=== PATIENT | male | born 1970 | race Caucasian/White ===

== ENCOUNTER 2018-08-11 07:44 | Emergency (ER) | payer BC ==
[~2018-08-11] VITALS: Ht 177.8 cm; Wt 124.7 kg
[2018-08-11 07:44] VITALS: BP_SYST 111
[2018-08-11] MEDS ORDERED: DIPHENOXYLATE HCL/ATROP SULF 2.5 MG TAB PO ONE (08:45)
[2018-08-11] MEDS ORDERED: KETOROLAC TROMETHAMINE 60 MG/2 ML VIAL IM ONE (08:45)
[2018-08-11 10:03] VITALS: BP_SYST 125
== END 2018-08-11 10:03 | disposition home or self-care (01) ==
LOC: SED 07:44
DX: K52.9 Noninfective gastroenteritis and colitis, unspecified (principal); Z98.84 Bariatric surgery status
CPT/HCPCS: 74018; 96372; 99283; J1885

== ENCOUNTER 2018-08-15 14:08 | Inpatient (IN) | payer BC ==
[~2018-08-15] VITALS: Ht 180.3 cm; Wt 127.0 kg
[2018-08-15 14:36] VITALS: BP_SYST 105
[2018-08-15 15:44] LABS: BILIRUBIN,URINE 1+ (NEGATIVE); BLOOD, URINE 2+ (NEGATIVE); CLARITY/URINE CLEAR (CLEAR); COLOR,URINE YELLOW (YELLOW); GLUCOSE,URINE NEGATIVE (NEGATIVE); KETONES,URINE NEGATIVE (NEGATIVE); LEUKOCYTE ESTERASE ,URINE NEGATIVE (NEGATIVE); NITRITE, URINE NEGATIVE (NEGATIVE); PROTEIN URINE NEGATIVE (NEGATIVE)
[2018-08-15] MEDS ORDERED: NACL 0.9% 1,000 ML IV ONE ×2 (15:47→22:00)
[2018-08-15 15:54] LABS: BACTERIA,URINE FEW /HPF (None Seen); MUCUS,URINE 1+ /LPF (None Seen); RBC,URINE 0-3 /HPF (0-3); WBC,URINE 0-3 /HPF (0-3)
[2018-08-15] MEDS ORDERED: MORPHINE 4 MG/ML INJ. SYRINGE IVP ONE (16:00)
[2018-08-15] MEDS ORDERED: DIPHENHYDRAMINE INJ 50 MG/ML VIAL IVP ONE (16:00)
[2018-08-15 16:11] LABS: MONOCYTES # (AUTO) 0.5 K/uL (0.0-1.0)
[2018-08-15 16:15] LABS: BASOPHILS # (AUTO) 0.1 K/uL (0.0-0.2); BASOPHILS % (AUTO) 1.5 % (0.0-2.0); EOSINOPHILS % (AUTO) 0.5 % (0.0-4.0); HEMATOCRIT 44.9 % (36-54); HEMOGLOBIN 14.9 g/dL (14.0-18.0); LYMPHOCYTES # (AUTO) 1.9 K/uL (1.0-5.5); LYMPHOCYTES % (AUTO) 26.4 % (20.5-51.5); MEAN CORPUSCULAR HEMOGLOBIN 32 pg (27-31); MEAN CORPUSCULAR HGB CONC 33 % (32-36); MEAN CORPUSCULAR VOLUME 96 fL (79.0-98.0); MONOCYTES % (AUTO) 6.9 % (1.7-9.3); NEUTROPHILS # (AUTO) 4.9 K/uL (1.8-7.7); NEUTROPHILS % (AUTO) 64.7 % (40.0-70.0); PLATELET COUNT (AUTO) 206 K/uL (130-430); RED BLOOD CELL COUNT(AUTO) 4.66 MIL/uL (4.2-6.2); RED CELL DISTRIBUTION WIDTH 12.3 % (9.0-15.0); WHITE BLOOD COUNT (AUTO) 7.4 K/uL (4.8-10.8)
[2018-08-15 16:17] LABS: CALCIUM 9.1 mg/dL (8.4-11.0); CREATININE 1.09 mg/dL (0.55-1.30); POTASSIUM 4.2 mmol/L (3.5-5.1)
[2018-08-15 16:22] LABS: ALBUMIN 3.8 g/dL (3.4-4.8); TOTAL BILIRUBIN 0.5 mg/dL (0.0-1.0)
[2018-08-15] MEDS ORDERED: ONDANSETRON HCL 4 MG/2 ML VIAL IVP ONE (17:45)
[2018-08-15] MEDS ORDERED: PIPERACILLIN/TAZO 3.375 GM in NS 50 ML IV ONE (19:30)
[2018-08-15] MEDS ORDERED: NACL 0.9% 1,000 ML IV SCH (19:45)
[2018-08-15] MEDS ORDERED: DIATR MEGLU/DIATRIZ SOD 30 ML SOLUTION PO ONE (19:47)
[2018-08-15] MEDS ORDERED: PIPERACILLIN/TAZOBACTAM 3.375 GM/VIAL (ZOSYN) IV ONE ×2 (19:50→22:36)
[2018-08-15 20:11] VITALS: BP_SYST 107
[2018-08-15] MEDS ORDERED: HYDR-4272 PO (20:24)
[2018-08-15] MEDS ORDERED: ALBUTEROL SULFATE 0.083% 2.5 MG/3 ML VIAL.NEB INH PRN (22:00)
[2018-08-15] MEDS ORDERED: ACETAMINOPHEN 325 MG TABLET PO PRN (22:00)
[2018-08-15] MEDS ORDERED: IOHEXOL 100 ML IV ONE (22:23)
[2018-08-15 23:20] VITALS: BP_SYST 107
[2018-08-16] MEDS: NACL 0.9% 1,000 ML IV SCH ×4 (00:05→17:48)
[2018-08-16] MEDS: PIPERACILLIN/TAZO 3.375/DEX-IS 50 ML IV SCH ×6 (00:06→23:06)
[2018-08-16 00:57] VITALS: BP_SYST 96
[2018-08-16 05:59] LABS: BASOPHILS # (AUTO) 0.1 K/uL (0.0-0.2); BASOPHILS % (AUTO) 1.5 % (0.0-2.0); EOSINOPHILS # (AUTO) 0.1 K/uL (0.0-0.4); EOSINOPHILS % (AUTO) 1.4 % (0.0-4.0); HEMATOCRIT 40.3 % (36-54); HEMOGLOBIN 12.9 g/dL (14.0-18.0); LYMPHOCYTES % (AUTO) 28.5 % (20.5-51.5); MEAN CORPUSCULAR HEMOGLOBIN 31 pg (27-31); MEAN CORPUSCULAR HGB CONC 32 % (32-36); MEAN CORPUSCULAR VOLUME 97 fL (79.0-98.0); MONOCYTES # (AUTO) 0.6 K/uL (0.0-1.0); MONOCYTES % (AUTO) 8.9 % (1.7-9.3); NEUTROPHILS # (AUTO) 4.1 K/uL (1.8-7.7); NEUTROPHILS % (AUTO) 59.7 % (40.0-70.0); PLATELET COUNT (AUTO) 174 K/uL (130-430); RED BLOOD CELL COUNT(AUTO) 4.16 MIL/uL (4.2-6.2); RED CELL DISTRIBUTION WIDTH 12.4 % (9.0-15.0); WHITE BLOOD COUNT (AUTO) 6.9 K/uL (4.8-10.8)
[2018-08-16 06:53] LABS: ALBUMIN 3.1 g/dL (3.4-4.8); CALCIUM 8.1 mg/dL (8.4-11.0); CREATININE 1.06 mg/dL (0.55-1.30); POTASSIUM 3.8 mmol/L (3.5-5.1); TOTAL BILIRUBIN 0.6 mg/dL (0.0-1.0)
[2018-08-16 08:27] VITALS: BP_SYST 100
[2018-08-16 09:15] LABS: INR 1.1 (0.80-1.20); PROTHROMBIN TIME 11.4 SECS (9.5-12.5)
[2018-08-16] MEDS ORDERED: fentaNYL CITRATE/PF 100 MCG/2 ML AMP IVP PRN (10:15)
[2018-08-16] MEDS ORDERED: KETOROLAC TROMETHAMINE 30 MG VIAL IVP PRN (10:15)
[2018-08-16] MEDS ORDERED: ONDANSETRON HCL 4 MG/2 ML VIAL IVP PRN ×2 (10:15→11:00)
[2018-08-16] MEDS ORDERED: ACETAMINOPHEN 325 MG TABLET PO PRN (11:00)
[2018-08-16] MEDS: fentaNYL CITRATE/PF 100 MCG/2 ML AMP IVP PRN ×2 (11:26→11:40)
[2018-08-16] MEDS ORDERED: HYDROmorphone 1 MG INJ. 1 MG/ML AMPUL ONE (11:38)
[2018-08-16] MEDS ORDERED: ONDANSETRON HCL 4 MG/2 ML VIAL ONE (11:38)
[2018-08-16] MEDS ORDERED: fentaNYL CITRATE/PF 100 MCG/2 ML AMP ONE (11:47)
[2018-08-16 12:30] VITALS: BP_SYST 117
[2018-08-16] MEDS: CEFAZOLIN 2 GM IVPB PREMIX 50 ML IV SCH ×2 (12:53→20:41)
[2018-08-16] MEDS: HYDROmorphone 1 MG INJ. 1 MG/ML AMPUL IVP PRN ×3 (12:55→21:25)
[2018-08-16 16:07] VITALS: BP_SYST 114
[2018-08-16 20:00] VITALS: BP_SYST 121
[2018-08-17] VITALS: BP_SYST 101
[2018-08-17] MEDS: HYDROmorphone 1 MG INJ. 1 MG/ML AMPUL IVP PRN ×7 (01:52→21:07)
[2018-08-17] MEDS: NACL 0.9% 1,000 ML IV SCH ×3 (03:38→23:01)
[2018-08-17] MEDS: PIPERACILLIN/TAZO 3.375/DEX-IS 50 ML IV SCH ×4 (05:02→23:00)
[2018-08-17 06:42] LABS: CALCIUM 8.4 mg/dL (8.4-11.0); CREATININE 1.09 mg/dL (0.55-1.30); POTASSIUM 3.7 mmol/L (3.5-5.1); TOTAL BILIRUBIN 0.6 mg/dL (0.0-1.0)
[2018-08-17 06:48] LABS: MONOCYTES # (AUTO) 0.7 K/uL (0.0-1.0); RED BLOOD CELL COUNT(AUTO) 4.27 MIL/uL (4.2-6.2); RED CELL DISTRIBUTION WIDTH 12.4 % (9.0-15.0); WHITE BLOOD COUNT (AUTO) 7.4 K/uL (4.8-10.8)
[2018-08-17 06:56] LABS: BASOPHILS # (AUTO) 0.1 K/uL (0.0-0.2); BASOPHILS % (AUTO) 0.7 % (0.0-2.0); EOSINOPHILS % (AUTO) 0.6 % (0.0-4.0); HEMATOCRIT 41.2 % (36-54); LYMPHOCYTES # (AUTO) 1.8 K/uL (1.0-5.5); LYMPHOCYTES % (AUTO) 24.1 % (20.5-51.5); MEAN CORPUSCULAR HEMOGLOBIN 31 pg (27-31); MEAN CORPUSCULAR HGB CONC 32 % (32-36); MEAN CORPUSCULAR VOLUME 97 fL (79.0-98.0); NEUTROPHILS # (AUTO) 4.8 K/uL (1.8-7.7); NEUTROPHILS % (AUTO) 65.6 % (40.0-70.0); PLATELET COUNT (AUTO) 193 K/uL (130-430)
[2018-08-17 08:00] VITALS: BP_SYST 101
[2018-08-17] MEDS: PHENAZOPYRIDINE HCL 100 MG TABLET PO SCH ×3 (08:53→17:56)
[2018-08-17] MEDS: PANTOPRAZOLE SODIUM 40 MG/VIAL (PROTONIX) IVP SCH (08:53)
[2018-08-17] MEDS ORDERED: BUPIVACAINE /PF 0.25% 30 ML VIAL INJ ONE (09:25)
[2018-08-17] MEDS ORDERED: MIDAZOLAM HCL 5 MG/5 ML VIAL IVP ONE (09:25)
[2018-08-17] MEDS ORDERED: fentaNYL CITRATE 250 MCG/5 ML AMP IV ONE (09:25)
[2018-08-17] MEDS ORDERED: NEOSTIGMINE METHYLSULFATE 1 MG/ML, 10 ML VIAL IVP ONE (09:25)
[2018-08-17] MEDS ORDERED: GLYCOPYRROLATE 0.2 MG/ML VIAL IJ ONE (09:25)
[2018-08-17] MEDS ORDERED: SEVOFLURANE 15 MIN GAS INH ONE (09:25)
[2018-08-17] MEDS ORDERED: PROPOFOL 200MG/ 20ML VIAL (DIPRIVAN) IV ONE (09:25)
[2018-08-17] MEDS ORDERED: LR 1,000 ML IV.SOLN IV ONE (09:25)
[2018-08-17 11:24] VITALS: BP_SYST 99
[2018-08-17 15:18] VITALS: BP_SYST 102
[2018-08-17] MEDS ORDERED: MINERAL OIL 30 ML UDC PO ONE (17:00)
[2018-08-17 19:45] VITALS: BP_SYST 104
[2018-08-17 23:59] VITALS: BP_SYST 106
[2018-08-18] MEDS: HYDROmorphone 1 MG INJ. 1 MG/ML AMPUL IVP PRN ×5 (02:57→21:19)
[2018-08-18] MEDS: PIPERACILLIN/TAZO 3.375/DEX-IS 50 ML IV SCH ×3 (05:16→17:36)
[2018-08-18 08:00] VITALS: BP_SYST 118
[2018-08-18] MEDS: PANTOPRAZOLE SODIUM 40 MG/VIAL (PROTONIX) IVP SCH (09:01)
[2018-08-18] MEDS: MINERAL OIL 30 ML UDC PO SCH (09:01)
[2018-08-18] MEDS: PHENAZOPYRIDINE HCL 100 MG TABLET PO SCH ×3 (09:01→17:36)
[2018-08-18] MEDS: NACL 0.9% 1,000 ML IV SCH ×2 (09:02→20:23)
[2018-08-18 11:25] VITALS: BP_SYST 130
[2018-08-18] MEDS: MORPHINE 2 MG/ML INJ. SYRINGE IVP PRN (12:02)
[2018-08-18] MEDS ORDERED: DIATR MEGLU/DIATRIZ SOD 30 ML SOLUTION PO ONE (12:30)
[2018-08-18] MEDS ORDERED: IOHEXOL 100 ML IV ONE (14:10)
[2018-08-18 15:04] VITALS: BP_SYST 115
[2018-08-18 20:00] VITALS: BP_SYST 128
[2018-08-18 23:39] VITALS: BP_SYST 107
[2018-08-19] MEDS: PIPERACILLIN/TAZO 3.375/DEX-IS 50 ML IV SCH ×2 (00:23→05:44)
[2018-08-19] MEDS: HYDROmorphone 1 MG INJ. 1 MG/ML AMPUL IVP PRN ×6 (00:24→21:59)
[2018-08-19] MEDS: NACL 0.9% 1,000 ML IV SCH (05:44)
[2018-08-19 07:27] LABS: BASOPHILS # (AUTO) 0.1 K/uL (0.0-0.2); BASOPHILS % (AUTO) 1.2 % (0.0-2.0); EOSINOPHILS # (AUTO) 0.1 K/uL (0.0-0.4); EOSINOPHILS % (AUTO) 1.4 % (0.0-4.0); HEMATOCRIT 44.5 % (36-54); HEMOGLOBIN 14.3 g/dL (14.0-18.0); LYMPHOCYTES # (AUTO) 1.7 K/uL (1.0-5.5); LYMPHOCYTES % (AUTO) 17.8 % (20.5-51.5); MEAN CORPUSCULAR HEMOGLOBIN 31 pg (27-31); MEAN CORPUSCULAR HGB CONC 32 % (32-36); MEAN CORPUSCULAR VOLUME 97 fL (79.0-98.0); MONOCYTES # (AUTO) 0.8 K/uL (0.0-1.0); MONOCYTES % (AUTO) 7.8 % (1.7-9.3); NEUTROPHILS # (AUTO) 6.9 K/uL (1.8-7.7); NEUTROPHILS % (AUTO) 71.8 % (40.0-70.0); PLATELET COUNT (AUTO) 207 K/uL (130-430); RED BLOOD CELL COUNT(AUTO) 4.61 MIL/uL (4.2-6.2); RED CELL DISTRIBUTION WIDTH 12.3 % (9.0-15.0); WHITE BLOOD COUNT (AUTO) 9.6 K/uL (4.8-10.8)
[2018-08-19 07:44] LABS: CREATININE 1.01 mg/dL (0.55-1.30)
[2018-08-19 07:50] LABS: ALBUMIN 3.2 g/dL (3.4-4.8); TOTAL BILIRUBIN 1.3 mg/dL (0.0-1.0)
[2018-08-19] MEDS ORDERED: *PPN PER PHARMACY XX PRN (08:00)
[2018-08-19] MEDS ORDERED: DEXTROSE 50% JECT 50 ML DISP.SYRIN IVP PRN (08:00)
[2018-08-19] MEDS ORDERED: INSULIN REGULAR, HUMAN 100 UNITS/ML, 10 ML VIAL (novoLIN R) SUBCUT PRN (08:00)
[2018-08-19 08:12] VITALS: BP_SYST 110
[2018-08-19] MEDS: PHENAZOPYRIDINE HCL 100 MG TABLET PO SCH ×3 (08:46→17:48)
[2018-08-19] MEDS: PANTOPRAZOLE SODIUM 40 MG/VIAL (PROTONIX) IVP SCH (08:46)
[2018-08-19] MEDS: MINERAL OIL 30 ML UDC PO SCH (08:46)
[2018-08-19 08:58] LABS: PHOSPHORUS 3.2 mg/dL (2.7-4.5)
[2018-08-19 12:02] VITALS: BP_SYST 107
[2018-08-19] MEDS: metroNIDAZOLE 500 mg/NS 100 ML IV SCH ×2 (14:06→21:03)
[2018-08-19 16:02] VITALS: BP_SYST 112
[2018-08-19] MEDS: FAT EMULSIONS 250 ML IV SCH (17:50)
[2018-08-19] MEDS ORDERED: TPN PERIPHERAL 0.0001 ML, SODIUM CHLORIDE 40 MEQ, POTASSIUM CHLORIDE 20 MEQ, K PHOS 9 M... IV SCH ×9 (18:00)
[2018-08-19 20:00] VITALS: BP_SYST 136
[2018-08-19 23:54] VITALS: BP_SYST 127
[2018-08-20] MEDS: HYDROmorphone 1 MG INJ. 1 MG/ML AMPUL IVP PRN ×6 (02:44→22:24)
[2018-08-20] MEDS: metroNIDAZOLE 500 mg/NS 100 ML IV SCH ×3 (05:02→22:24)
[2018-08-20] MEDS: MINERAL OIL 30 ML UDC PO SCH (09:00)
[2018-08-20 09:02] LABS: CALCIUM 8.5 mg/dL (8.4-11.0); CREATININE 0.91 mg/dL (0.55-1.30); POTASSIUM 3.7 mmol/L (3.5-5.1)
[2018-08-20 09:06] LABS: ALBUMIN 2.8 g/dL (3.4-4.8); PHOSPHORUS 2.8 mg/dL (2.7-4.5)
[2018-08-20] MEDS: PANTOPRAZOLE SODIUM 40 MG/VIAL (PROTONIX) IVP SCH (09:25)
[2018-08-20] MEDS: PHENAZOPYRIDINE HCL 100 MG TABLET PO SCH ×3 (09:25→18:53)
[2018-08-20 09:26] VITALS: BP_SYST 100
[2018-08-20] MEDS ORDERED: SODIUM CHLORIDE IV SCH ×18 (10:30→18:00)
[2018-08-20] MEDS ORDERED: TPN PERIPHERAL IV SCH ×18 (10:30→18:00)
[2018-08-20] MEDS ORDERED: [UNRECOGNIZED DRUG - OTHER] IV SCH ×18 (10:30→18:00)
[2018-08-20] MEDS ORDERED: POTASSIUM CHLORIDE IV SCH ×18 (10:30→18:00)
[2018-08-20 11:47] VITALS: BP_SYST 147
[2018-08-20 17:00] VITALS: BP_SYST 132
[2018-08-20] MEDS: FAT EMULSIONS 250 ML IV SCH (17:44)
[2018-08-20] MEDS: MORPHINE 2 MG/ML INJ. SYRINGE IVP PRN (18:00)
[2018-08-20 19:20] VITALS: BP_SYST 102
[2018-08-21 00:18] VITALS: BP_SYST 109
[2018-08-21] MEDS: HYDROmorphone 1 MG INJ. 1 MG/ML AMPUL IVP PRN ×3 (01:27→07:34)
[2018-08-21] MEDS: metroNIDAZOLE 500 mg/NS 100 ML IV SCH ×3 (06:22→22:13)
[2018-08-21 06:47] LABS: ALBUMIN 2.7 g/dL (3.4-4.8); CALCIUM 8.8 mg/dL (8.4-11.0); CREATININE 0.91 mg/dL (0.55-1.30); PHOSPHORUS 3.4 mg/dL (2.7-4.5); POTASSIUM 3.8 mmol/L (3.5-5.1); TOTAL BILIRUBIN 1.3 mg/dL (0.0-1.0)
[2018-08-21] MEDS: ONDANSETRON HCL 4 MG/2 ML VIAL IVP PRN (07:37)
[2018-08-21] MEDS ORDERED: DIATR MEGLU/DIATRIZ SOD 30 ML SOLUTION PO ONE (07:56)
[2018-08-21 08:01] VITALS: BP_SYST 118
[2018-08-21] MEDS: PHENAZOPYRIDINE HCL 100 MG TABLET PO SCH ×3 (08:30→18:30)
[2018-08-21] MEDS: PANTOPRAZOLE SODIUM 40 MG/VIAL (PROTONIX) IVP SCH (08:49)
[2018-08-21] MEDS: MINERAL OIL 30 ML UDC PO SCH (08:49)
[2018-08-21] MEDS ORDERED: IOHEXOL 100 ML IV ONE (09:49)
[2018-08-21] MEDS: HYDROmorphone 2 MG/ML VIAL IVP PRN ×4 (10:17→21:52)
[2018-08-21] MEDS ORDERED: NACL 0.9% 1,000 ML IV SCH (10:30)
[2018-08-21 12:08] VITALS: BP_SYST 122
[2018-08-21] MEDS: FLUCONAZOLE 200 mg/ NS 100 ML IV SCH (13:13)
[2018-08-21] MEDS ORDERED: METOCLOPRAMIDE HCL 10 MG/2 ML VIAL IVP ONE (16:00)
[2018-08-21] MEDS ORDERED: BISACODYL 10 MG/SUPPOSITORY RC ONE (16:00)
[2018-08-21 16:15] VITALS: BP_SYST 110
[2018-08-21] MEDS: FAT EMULSIONS 250 ML IV SCH (17:49)
[2018-08-21] MEDS ORDERED: [UNRECOGNIZED DRUG - OTHER] IV SCH ×9 (18:00)
[2018-08-21] MEDS ORDERED: TPN PERIPHERAL IV SCH ×9 (18:00)
[2018-08-21] MEDS ORDERED: POTASSIUM CHLORIDE IV SCH ×9 (18:00)
[2018-08-21] MEDS ORDERED: SODIUM CHLORIDE IV SCH ×9 (18:00)
[2018-08-21] MEDS: METOCLOPRAMIDE HCL 10 MG/2 ML VIAL IVP SCH ×2 (18:00→23:08)
[2018-08-21 19:05] VITALS: BP_SYST 115
[2018-08-21] MEDS ORDERED: HYDROmorphone 2 MG/ML VIAL IVP SCH (19:45)
[2018-08-21] MEDS ORDERED: LORazepam 2 MG/ML VIAL IVP SCH (22:00)
[2018-08-21] MEDS: KETOROLAC TROMETHAMINE 30 MG VIAL IM PRN (23:07)
[2018-08-22] MEDS: HYDROmorphone 2 MG/ML VIAL IVP PRN ×5 (01:44→23:34)
[2018-08-22] MEDS: metroNIDAZOLE 500 mg/NS 100 ML IV SCH ×3 (06:17→22:01)
[2018-08-22] MEDS: METOCLOPRAMIDE HCL 10 MG/2 ML VIAL IVP SCH ×4 (06:18→23:33)
[2018-08-22 08:00] VITALS: BP_SYST 109
[2018-08-22] MEDS: PHENAZOPYRIDINE HCL 100 MG TABLET PO SCH ×3 (08:27→18:19)
[2018-08-22] MEDS: PANTOPRAZOLE SODIUM 40 MG/VIAL (PROTONIX) IVP SCH (08:27)
[2018-08-22] MEDS: MINERAL OIL 30 ML UDC PO SCH (08:28)
[2018-08-22 09:17] LABS: ALBUMIN 2.5 g/dL (3.4-4.8); CALCIUM 8.3 mg/dL (8.4-11.0); CREATININE 0.89 mg/dL (0.55-1.30); PHOSPHORUS 2.6 mg/dL (2.7-4.5); POTASSIUM 3.8 mmol/L (3.5-5.1); TOTAL BILIRUBIN 1.5 mg/dL (0.0-1.0)
[2018-08-22 12:15] VITALS: BP_SYST 116
[2018-08-22] MEDS: FLUCONAZOLE 200 mg/ NS 100 ML IV SCH (12:58)
[2018-08-22 16:10] VITALS: BP_SYST 111
[2018-08-22 17:50] VITALS: BP_SYST 109
[2018-08-22] MEDS ORDERED: TPN PERIPHERAL IV SCH ×10 (18:00)
[2018-08-22] MEDS ORDERED: [UNRECOGNIZED DRUG - OTHER] IV SCH ×10 (18:00)
[2018-08-22] MEDS ORDERED: SODIUM CHLORIDE IV SCH ×10 (18:00)
[2018-08-22] MEDS ORDERED: POTASSIUM CHLORIDE IV SCH ×10 (18:00)
[2018-08-22] MEDS: FAT EMULSIONS 250 ML IV SCH (18:22)
[2018-08-22 19:10] VITALS: BP_SYST 126
[2018-08-22] MEDS: KETOROLAC TROMETHAMINE 30 MG VIAL IM PRN (22:02)
[2018-08-23 00:10] VITALS: BP_SYST 123
[2018-08-23] MEDS: HYDROmorphone 2 MG/ML VIAL IVP PRN ×7 (03:38→20:44)
[2018-08-23] MEDS: metroNIDAZOLE 500 mg/NS 100 ML IV SCH ×3 (05:36→22:14)
[2018-08-23] MEDS: METOCLOPRAMIDE HCL 10 MG/2 ML VIAL IVP SCH ×4 (05:36→23:17)
[2018-08-23 07:10] LABS: BASOPHILS % (AUTO) 0.2 % (0.0-2.0); EOSINOPHILS # (AUTO) 0.1 K/uL (0.0-0.4); EOSINOPHILS % (AUTO) 1.2 % (0.0-4.0); HEMATOCRIT 37.3 % (36-54); HEMOGLOBIN 12.6 g/dL (14.0-18.0); LYMPHOCYTES # (AUTO) 1.3 K/uL (1.0-5.5); LYMPHOCYTES % (AUTO) 14.7 % (20.5-51.5); MEAN CORPUSCULAR HEMOGLOBIN 32 pg (27-31); MEAN CORPUSCULAR HGB CONC 34 % (32-36); MEAN CORPUSCULAR VOLUME 95 fL (79.0-98.0); MONOCYTES # (AUTO) 1.1 K/uL (0.0-1.0); MONOCYTES % (AUTO) 13.4 % (1.7-9.3); NEUTROPHILS # (AUTO) 6.1 K/uL (1.8-7.7); NEUTROPHILS % (AUTO) 70.5 % (40.0-70.0); PLATELET COUNT (AUTO) 212 K/uL (130-430); RED BLOOD CELL COUNT(AUTO) 3.92 MIL/uL (4.2-6.2); RED CELL DISTRIBUTION WIDTH 12.3 % (9.0-15.0); WHITE BLOOD COUNT (AUTO) 8.6 K/uL (4.8-10.8)
[2018-08-23 08:00] VITALS: BP_SYST 130
[2018-08-23 08:22] LABS: CALCIUM 8.1 mg/dL (8.4-11.0); CREATININE 0.91 mg/dL (0.55-1.30); POTASSIUM 3.9 mmol/L (3.5-5.1)
[2018-08-23 08:26] LABS: ALBUMIN 2.3 g/dL (3.4-4.8); PHOSPHORUS 2.8 mg/dL (2.7-4.5); TOTAL BILIRUBIN 1.2 mg/dL (0.0-1.0)
[2018-08-23] MEDS: PANTOPRAZOLE SODIUM 40 MG/VIAL (PROTONIX) IVP SCH (09:13)
[2018-08-23] MEDS: MINERAL OIL 30 ML UDC PO SCH (09:13)
[2018-08-23] MEDS: PHENAZOPYRIDINE HCL 100 MG TABLET PO SCH ×3 (09:13→18:23)
[2018-08-23] MEDS ORDERED: COMMUNICATION ORDER XX ONE (10:30)
[2018-08-23 12:00] VITALS: BP_SYST 125
[2018-08-23] MEDS: FLUCONAZOLE 200 mg/ NS 100 ML IV SCH (13:22)
[2018-08-23] MEDS: D5/0.45 NS 1,000 ML IV SCH (17:05)
[2018-08-23 17:42] VITALS: BP_SYST 136
[2018-08-23 20:16] VITALS: BP_SYST 140
[2018-08-23] MEDS: ONDANSETRON HCL 4 MG/2 ML VIAL IVP PRN (20:43)
[2018-08-23] MEDS: LORazepam 2 MG/ML VIAL IVP PRN (23:18)
[2018-08-24 00:16] VITALS: BP_SYST 118
[2018-08-24] MEDS: HYDROmorphone 2 MG/ML VIAL IVP PRN ×7 (03:02→21:25)
[2018-08-24] MEDS: D5/0.45 NS 1,000 ML IV SCH ×2 (03:02→16:59)
[2018-08-24] MEDS: METOCLOPRAMIDE HCL 10 MG/2 ML VIAL IVP SCH ×4 (06:08→23:38)
[2018-08-24] MEDS: metroNIDAZOLE 500 mg/NS 100 ML IV SCH (06:08)
[2018-08-24] MEDS: MINERAL OIL 30 ML UDC PO SCH (09:00)
[2018-08-24] MEDS: PHENAZOPYRIDINE HCL 100 MG TABLET PO SCH ×3 (09:43→18:30)
[2018-08-24] MEDS: PANTOPRAZOLE SODIUM 40 MG/VIAL (PROTONIX) IVP SCH (09:43)
[2018-08-24 09:55] VITALS: BP_SYST 120
[2018-08-24 13:02] VITALS: BP_SYST 134
[2018-08-24 18:05] VITALS: BP_SYST 127
[2018-08-24 20:59] VITALS: BP_SYST 132
[2018-08-24] MEDS: LORazepam 2 MG/ML VIAL IVP PRN (23:38)
[2018-08-25 00:53] VITALS: BP_SYST 117
[2018-08-25] MEDS: D5/0.45 NS 1,000 ML IV SCH ×2 (02:50→17:47)
[2018-08-25] MEDS: HYDROmorphone 2 MG/ML VIAL IVP PRN ×8 (02:51→22:11)
[2018-08-25] MEDS: METOCLOPRAMIDE HCL 10 MG/2 ML VIAL IVP SCH ×3 (06:05→17:45)
[2018-08-25 09:00] VITALS: BP_SYST 139
[2018-08-25] MEDS: PHENAZOPYRIDINE HCL 100 MG TABLET PO SCH ×3 (09:44→17:45)
[2018-08-25] MEDS: MINERAL OIL 30 ML UDC PO SCH (09:44)
[2018-08-25] MEDS: PANTOPRAZOLE SODIUM 40 MG/VIAL (PROTONIX) IVP SCH (09:45)
[2018-08-25] MEDS ORDERED: HYDROcodone/ACETAMIN 5-325 MG TAB (NORCO/ VICODIN) PO PRN (10:30)
[2018-08-25 11:27] LABS: CALCIUM 8.8 mg/dL (8.4-11.0); CREATININE 0.8 mg/dL (0.55-1.30); POTASSIUM 3.7 mmol/L (3.5-5.1)
[2018-08-25 11:32] LABS: ALBUMIN 2.6 g/dL (3.4-4.8); TOTAL BILIRUBIN 1.7 mg/dL (0.0-1.0)
[2018-08-25 12:00] VITALS: BP_SYST 132
[2018-08-25 16:00] VITALS: BP_SYST 111; BP_SYST 132
[2018-08-25 19:45] VITALS: BP_SYST 111
[2018-08-25] MEDS: LORazepam 2 MG/ML VIAL IVP PRN (23:35)
[2018-08-26 00:46] VITALS: BP_SYST 123
[2018-08-26] MEDS: METOCLOPRAMIDE HCL 10 MG/2 ML VIAL IVP SCH ×5 (01:06→23:52)
[2018-08-26] MEDS: HYDROmorphone 2 MG/ML VIAL IVP PRN ×7 (01:07→23:53)
[2018-08-26] MEDS: D5/0.45 NS 1,000 ML IV SCH ×2 (07:39→09:30)
[2018-08-26] MEDS ORDERED: POLYETHYLENE GLYCOL 3350, 17 GM/ POWD.PACK PO PRN (09:00)
[2018-08-26 09:42] VITALS: BP_SYST 122
[2018-08-26] MEDS: MINERAL OIL 30 ML UDC PO SCH (09:46)
[2018-08-26] MEDS: PHENAZOPYRIDINE HCL 100 MG TABLET PO SCH ×3 (09:47→17:37)
[2018-08-26] MEDS: PANTOPRAZOLE SODIUM 40 MG/VIAL (PROTONIX) IVP SCH (09:47)
[2018-08-26 12:58] VITALS: BP_SYST 117
[2018-08-26] MEDS: LORazepam 2 MG/ML VIAL IVP PRN ×2 (14:44→22:37)
[2018-08-26 14:53] LABS: AMYLASE 44 U/L (0-100); LIPASE 95 U/L (73-393)
[2018-08-26 16:50] VITALS: BP_SYST 115
[2018-08-26 20:00] VITALS: BP_SYST 118
[2018-08-26 23:30] VITALS: BP_SYST 115
[2018-08-27] MEDS: HYDROmorphone 2 MG/ML VIAL IVP PRN ×6 (02:42→17:45)
[2018-08-27] MEDS: D5/0.45 NS 1,000 ML IV SCH ×2 (04:32→17:46)
[2018-08-27] MEDS: LORazepam 2 MG/ML VIAL IVP PRN ×2 (04:32→16:17)
[2018-08-27] MEDS: METOCLOPRAMIDE HCL 10 MG/2 ML VIAL IVP SCH ×3 (05:32→17:45)
[2018-08-27 08:00] VITALS: BP_SYST 111
[2018-08-27] MEDS: PHENAZOPYRIDINE HCL 100 MG TABLET PO SCH ×3 (08:30→17:46)
[2018-08-27] MEDS: PANTOPRAZOLE SODIUM 40 MG/VIAL (PROTONIX) IVP SCH (08:54)
[2018-08-27] MEDS: MINERAL OIL 30 ML UDC PO SCH (08:55)
[2018-08-27 09:52] LABS: BASOPHILS # (AUTO) 0.1 K/uL (0.0-0.2); BASOPHILS % (AUTO) 1.6 % (0.0-2.0); EOSINOPHILS # (AUTO) 0.2 K/uL (0.0-0.4); EOSINOPHILS % (AUTO) 2.1 % (0.0-4.0); HEMATOCRIT 35.9 % (36-54); HEMOGLOBIN 11.6 g/dL (14.0-18.0); LYMPHOCYTES # (AUTO) 1.2 K/uL (1.0-5.5); LYMPHOCYTES % (AUTO) 14.2 % (20.5-51.5); MEAN CORPUSCULAR HEMOGLOBIN 31 pg (27-31); MEAN CORPUSCULAR HGB CONC 32 % (32-36); MEAN CORPUSCULAR VOLUME 97 fL (79.0-98.0); MONOCYTES # (AUTO) 0.9 K/uL (0.0-1.0); MONOCYTES % (AUTO) 10.8 % (1.7-9.3); NEUTROPHILS % (AUTO) 71.3 % (40.0-70.0); PLATELET COUNT (AUTO) 324 K/uL (130-430); RED BLOOD CELL COUNT(AUTO) 3.71 MIL/uL (4.2-6.2); RED CELL DISTRIBUTION WIDTH 12.4 % (9.0-15.0); WHITE BLOOD COUNT (AUTO) 8.4 K/uL (4.8-10.8)
[2018-08-27 10:15] LABS: CALCIUM 8.4 mg/dL (8.4-11.0); CREATININE 0.85 mg/dL (0.55-1.30); POTASSIUM 3.7 mmol/L (3.5-5.1)
[2018-08-27 10:20] LABS: ALBUMIN 2.3 g/dL (3.4-4.8); TOTAL BILIRUBIN 1.7 mg/dL (0.0-1.0)
[2018-08-27 12:40] VITALS: BP_SYST 115
[2018-08-27 16:47] VITALS: BP_SYST 126
[2018-08-27] MEDS ORDERED: metroNIDAZOLE 500 mg/NS 100 mL IVPB IV ONE (19:30)
[2018-08-27] MEDS ORDERED: LR 1,000 ML IV.SOLN IV ONE (19:30)
[2018-08-27] MEDS ORDERED: NS IRRIG SOLN 1000 ML IR ONE (19:30)
[2018-08-27] MEDS ORDERED: ONDANSETRON HCL 4 MG/2 ML VIAL IVP ONE (19:30)
[2018-08-27] MEDS ORDERED: GLYCOPYRROLATE 0.2 MG/ML VIAL IJ ONE (19:30)
[2018-08-27] MEDS ORDERED: MIDAZOLAM HCL 5 MG/5 ML VIAL IVP ONE (19:30)
[2018-08-27] MEDS ORDERED: NEOSTIGMINE METHYLSULFATE 1 MG/ML, 10 ML VIAL IVP ONE (19:30)
[2018-08-27] MEDS ORDERED: SEVOFLURANE 15 MIN GAS INH ONE (19:30)
[2018-08-27] MEDS ORDERED: PROPOFOL 200MG/ 20ML VIAL (DIPRIVAN) IV ONE (19:30)
[2018-08-27] MEDS ORDERED: KETOROLAC TROMETHAMINE 30 MG VIAL IVP ONE (19:30)
[2018-08-27] MEDS ORDERED: fentaNYL CITRATE/PF 100 MCG/2 ML AMP IVP ONE (19:30)
[2018-08-27] MEDS ORDERED: ROCURONIUM BROMIDE 10 MG/ML (ZEMURON) IV ONE (19:30)
[2018-08-27] MEDS ORDERED: fentaNYL CITRATE/PF 100 MCG/2 ML AMP IVP PRN ×2 (20:45)
[2018-08-27] MEDS ORDERED: ONDANSETRON HCL 4 MG/2 ML VIAL IVP PRN (21:00)
[2018-08-27] MEDS ORDERED: ACETAMINOPHEN 325 MG TABLET PO PRN (22:30)
[2018-08-27] MEDS ORDERED: HYDROcodone/ACETAMIN 5-325 MG TAB (NORCO/ VICODIN) PO PRN (22:30)
[2018-08-27] MEDS ORDERED: METOCLOPRAMIDE HCL 10 MG/2 ML VIAL ONE (22:31)
[2018-08-27] MEDS ORDERED: fentaNYL CITRATE/PF 100 MCG/2 ML AMP ONE (22:50)
[2018-08-27] MEDS ORDERED: metroNIDAZOLE 500 mg/NS 200 ML IV ONE (23:50)
[2018-08-27] MEDS ORDERED: CEFAZOLIN 2 GM IVPB PREMIX 100 ML IV ONE (23:50)
[2018-08-28] VITALS (25 sets, daily range): BP systolic 97–146
[2018-08-28] MEDS: CEFAZOLIN 2 GM IVPB PREMIX 50 ML IV SCH ×2 (00:02→05:34)
[2018-08-28] MEDS: METOCLOPRAMIDE HCL 10 MG/2 ML VIAL IVP SCH ×5 (00:51→23:33)
[2018-08-28] MEDS: metroNIDAZOLE 500 mg/NS 100 ML IV SCH ×2 (00:52→06:43)
[2018-08-28] MEDS: HYDROmorphone 1 MG INJ. 1 MG/ML AMPUL IVP PRN ×3 (01:53→08:25)
[2018-08-28] MEDS: NACL 0.9% 1,000 ML IV SCH ×3 (05:30→18:24)
[2018-08-28 07:50] LABS: HEMATOCRIT 35.4 % (36-54); HEMOGLOBIN 11.7 g/dL (14.0-18.0); MEAN CORPUSCULAR HEMOGLOBIN 32 pg (27-31); MEAN CORPUSCULAR HGB CONC 33 % (32-36); MEAN CORPUSCULAR VOLUME 96 fL (79.0-98.0); PLATELET COUNT (AUTO) 353 K/uL (130-430); RED BLOOD CELL COUNT(AUTO) 3.68 MIL/uL (4.2-6.2); RED CELL DISTRIBUTION WIDTH 12.8 % (9.0-15.0); WHITE BLOOD COUNT (AUTO) 13.6 K/uL (4.8-10.8)
[2018-08-28 08:02] LABS: CALCIUM 7.8 mg/dL (8.4-11.0); CREATININE 0.8 mg/dL (0.55-1.30); POTASSIUM 4.1 mmol/L (3.5-5.1)
[2018-08-28 08:08] LABS: ALBUMIN 1.9 g/dL (3.4-4.8); TOTAL BILIRUBIN 2.2 mg/dL (0.0-1.0)
[2018-08-28] MEDS: ONDANSETRON HCL 4 MG/2 ML VIAL IVP PRN (08:16)
[2018-08-28] MEDS: PHENAZOPYRIDINE HCL 100 MG TABLET PO SCH ×3 (08:30→18:30)
[2018-08-28] MEDS ORDERED: NALOXONE HCL 0.4 MG/ML AMP (NARCAN) IVP ONE (08:30)
[2018-08-28] MEDS: MINERAL OIL 30 ML UDC PO SCH (09:00)
[2018-08-28 09:49] LABS: BAND % (MANUAL) 6 % (0-6); LYMPHOCYTES % (MANUAL) 6 % (20-46); MONOCYTES % (MANUAL) 9 % (0-11)
[2018-08-28 09:50] LABS: BASOPHILS % (MANUAL) 0 % (0-2); EOSINOPHILS % (MANUAL) 0 % (0-7)
[2018-08-28] MEDS ORDERED: *TPN PER PHARMACY XX PRN (10:00)
[2018-08-28] MEDS ORDERED: DEXTROSE 50% JECT 50 ML DISP.SYRIN IVP PRN (10:00)
[2018-08-28] MEDS: PANTOPRAZOLE SODIUM 40 MG/VIAL (PROTONIX) IVP SCH (10:21)
[2018-08-28 10:43] LABS: PHOSPHORUS 3.7 mg/dL (2.7-4.5)
[2018-08-28] MEDS: PIPERACILLIN/TAZO 4.5GM/DEX-IS 100 ML IV SCH ×3 (11:39→22:31)
[2018-08-28] MEDS: KETOROLAC TROMETHAMINE 30 MG VIAL IVP SCH ×3 (11:39→23:33)
[2018-08-28] MEDS ORDERED: NALOXONE HCL 0.4 MG/ML AMP (NARCAN) IVP PRN (12:30)
[2018-08-28] MEDS: FAT EMULSIONS 250 ML IV SCH (17:58)
[2018-08-28] MEDS ORDERED: NA PHOS IV SCH ×9 (18:00)
[2018-08-28] MEDS ORDERED: SODIUM CHLORIDE IV SCH ×9 (18:00)
[2018-08-28] MEDS ORDERED: [UNRECOGNIZED DRUG - OTHER] IV SCH ×9 (18:00)
[2018-08-28] MEDS ORDERED: TPN CENTRAL IV SCH ×9 (18:00)
[2018-08-29] VITALS (18 sets, daily range): BP systolic 90–129
[2018-08-29] MEDS: NACL 0.9% 1,000 ML IV SCH ×2 (05:42→14:20)
[2018-08-29] MEDS: PIPERACILLIN/TAZO 4.5GM/DEX-IS 100 ML IV SCH ×3 (06:23→21:32)
[2018-08-29] MEDS: METOCLOPRAMIDE HCL 10 MG/2 ML VIAL IVP SCH ×2 (06:23→11:45)
[2018-08-29] MEDS: KETOROLAC TROMETHAMINE 30 MG VIAL IVP SCH ×4 (06:23→23:21)
[2018-08-29 06:43] LABS: CALCIUM 7.5 mg/dL (8.4-11.0); CREATININE 0.84 mg/dL (0.55-1.30); PHOSPHORUS 2.3 mg/dL (2.7-4.5); POTASSIUM 3.5 mmol/L (3.5-5.1)
[2018-08-29] MEDS: PHENAZOPYRIDINE HCL 100 MG TABLET PO SCH ×2 (08:30→11:38)
[2018-08-29] MEDS: MINERAL OIL 30 ML UDC PO SCH (09:00)
[2018-08-29] MEDS: PANTOPRAZOLE SODIUM 40 MG/VIAL (PROTONIX) IVP SCH (09:41)
[2018-08-29] MEDS ORDERED: METOCLOPRAMIDE HCL 10 MG TABLET PO SCH (17:00)
[2018-08-29] MEDS: FAT EMULSIONS 250 ML IV SCH (17:42)
[2018-08-29] MEDS ORDERED: [UNRECOGNIZED DRUG - OTHER] IV SCH ×9 (18:00)
[2018-08-29] MEDS ORDERED: K PHOS IV SCH ×9 (18:00)
[2018-08-29] MEDS ORDERED: TPN CENTRAL IV SCH ×9 (18:00)
[2018-08-29] MEDS ORDERED: SODIUM CHLORIDE IV SCH ×9 (18:00)
[2018-08-30 00:21] VITALS: BP_SYST 91
[2018-08-30] MEDS: NACL 0.9% 1,000 ML IV SCH ×3 (01:28→20:20)
[2018-08-30] MEDS: LORazepam 2 MG/ML VIAL IVP PRN (01:28)
[2018-08-30] MEDS: KETOROLAC TROMETHAMINE 30 MG VIAL IVP SCH ×4 (05:57→23:04)
[2018-08-30] MEDS: PIPERACILLIN/TAZO 4.5GM/DEX-IS 100 ML IV SCH ×3 (05:58→21:08)
[2018-08-30 07:05] LABS: ALBUMIN 1.5 g/dL (3.4-4.8); CALCIUM 7.7 mg/dL (8.4-11.0); CREATININE 0.85 mg/dL (0.55-1.30); POTASSIUM 3.5 mmol/L (3.5-5.1); TOTAL BILIRUBIN 0.7 mg/dL (0.0-1.0)
[2018-08-30 07:39] LABS: BASOPHILS # (AUTO) 0.1 K/uL (0.0-0.2); BASOPHILS % (AUTO) 0.7 % (0.0-2.0); EOSINOPHILS # (AUTO) 0.5 K/uL (0.0-0.4); EOSINOPHILS % (AUTO) 4.7 % (0.0-4.0); LYMPHOCYTES # (AUTO) 1.6 K/uL (1.0-5.5); LYMPHOCYTES % (AUTO) 16.1 % (20.5-51.5); MEAN CORPUSCULAR HEMOGLOBIN 29 pg (27-31); MEAN CORPUSCULAR HGB CONC 30 % (32-36); MEAN CORPUSCULAR VOLUME 99 fL (79.0-98.0); MONOCYTES # (AUTO) 0.6 K/uL (0.0-1.0); MONOCYTES % (AUTO) 5.8 % (1.7-9.3); NEUTROPHILS # (AUTO) 7.3 K/uL (1.8-7.7); NEUTROPHILS % (AUTO) 72.7 % (40.0-70.0); PLATELET COUNT (AUTO) 364 K/uL (130-430); RED BLOOD CELL COUNT(AUTO) 2.95 MIL/uL (4.2-6.2); RED CELL DISTRIBUTION WIDTH 12.8 % (9.0-15.0); WHITE BLOOD COUNT (AUTO) 10.1 K/uL (4.8-10.8)
[2018-08-30 07:57] VITALS: BP_SYST 95
[2018-08-30] MEDS: CHOLECALCIFEROL (VITAMIN D3) 2,000 UNIT TABLET PO SCH (08:28)
[2018-08-30] MEDS: MINERAL OIL 30 ML UDC PO SCH (08:29)
[2018-08-30] MEDS: PANTOPRAZOLE SODIUM 40 MG/VIAL (PROTONIX) IVP SCH (08:29)
[2018-08-30] MEDS: INSULIN REGULAR, HUMAN 100 UNITS/ML, 10 ML VIAL (novoLIN R) SUBCUT PRN ×2 (11:10→17:22)
[2018-08-30] MEDS ORDERED: TAMSULOSIN HCL 0.4 MG CAP PO ONE (11:30)
[2018-08-30 12:00] VITALS: BP_SYST 107
[2018-08-30] MEDS ORDERED: MULTIVITS,CA,MINERALS/IRON/FA 1 TABLET PO ONE (14:00)
[2018-08-30 16:00] VITALS: BP_SYST 104
[2018-08-30] MEDS: FAT EMULSIONS 250 ML IV SCH (17:28)
[2018-08-30] MEDS ORDERED: TPN CENTRAL IV SCH ×9 (18:00)
[2018-08-30] MEDS ORDERED: [UNRECOGNIZED DRUG - OTHER] IV SCH ×9 (18:00)
[2018-08-30] MEDS ORDERED: SODIUM CHLORIDE IV SCH ×9 (18:00)
[2018-08-30] MEDS ORDERED: POTASSIUM CHLORIDE IV SCH ×9 (18:00)
[2018-08-30 20:00] VITALS: BP_SYST 104
[2018-08-30] MEDS: MULTIVITS,CA,MINERALS/IRON/FA 1 TABLET PO SCH (21:07)
[2018-08-31] VITALS: BP_SYST 97
[2018-08-31] MEDS: KETOROLAC TROMETHAMINE 30 MG VIAL IVP SCH ×4 (05:13→23:28)
[2018-08-31] MEDS: PIPERACILLIN/TAZO 4.5GM/DEX-IS 100 ML IV SCH ×3 (05:13→21:06)
[2018-08-31] MEDS: NACL 0.9% 1,000 ML IV SCH (05:20)
[2018-08-31 06:41] LABS: CALCIUM 7.8 mg/dL (8.4-11.0); CREATININE 0.75 mg/dL (0.55-1.30); POTASSIUM 3.5 mmol/L (3.5-5.1)
[2018-08-31 06:50] LABS: BASOPHILS % (AUTO) 0.2 % (0.0-2.0); EOSINOPHILS # (AUTO) 0.4 K/uL (0.0-0.4); EOSINOPHILS % (AUTO) 4.9 % (0.0-4.0); HEMOGLOBIN 9.4 g/dL (14.0-18.0); LYMPHOCYTES # (AUTO) 1.4 K/uL (1.0-5.5); LYMPHOCYTES % (AUTO) 16.4 % (20.5-51.5); MEAN CORPUSCULAR HEMOGLOBIN 32 pg (27-31); MEAN CORPUSCULAR HGB CONC 33 % (32-36); MEAN CORPUSCULAR VOLUME 97 fL (79.0-98.0); MONOCYTES # (AUTO) 0.6 K/uL (0.0-1.0); MONOCYTES % (AUTO) 6.6 % (1.7-9.3); NEUTROPHILS # (AUTO) 6.3 K/uL (1.8-7.7); NEUTROPHILS % (AUTO) 71.9 % (40.0-70.0); PLATELET COUNT (AUTO) 425 K/uL (130-430); RED BLOOD CELL COUNT(AUTO) 2.99 MIL/uL (4.2-6.2); RED CELL DISTRIBUTION WIDTH 12.2 % (9.0-15.0); WHITE BLOOD COUNT (AUTO) 8.7 K/uL (4.8-10.8)
[2018-08-31 07:01] LABS: ALBUMIN 1.7 g/dL (3.4-4.8); PHOSPHORUS 3.3 mg/dL (2.7-4.5); TOTAL BILIRUBIN 0.7 mg/dL (0.0-1.0)
[2018-08-31 08:20] VITALS: BP_SYST 108
[2018-08-31] MEDS ORDERED: COMMUNICATION ORDER XX ONE ×2 (10:15→19:00)
[2018-08-31] MEDS: PANTOPRAZOLE SODIUM 40 MG/VIAL (PROTONIX) IVP SCH (11:08)
[2018-08-31] MEDS: TAMSULOSIN HCL 0.4 MG CAP PO SCH (11:16)
[2018-08-31] MEDS: MINERAL OIL 30 ML UDC PO SCH (11:16)
[2018-08-31] MEDS: CHOLECALCIFEROL (VITAMIN D3) 2,000 UNIT TABLET PO SCH (11:17)
[2018-08-31] MEDS: MULTIVITS,CA,MINERALS/IRON/FA 1 TABLET PO SCH ×2 (11:17→21:05)
[2018-08-31 12:30] VITALS: BP_SYST 127
[2018-08-31 16:40] VITALS: BP_SYST 116
[2018-08-31] MEDS ORDERED: POTASSIUM CHLORIDE IV SCH ×9 (18:00)
[2018-08-31] MEDS ORDERED: TPN CENTRAL IV SCH ×9 (18:00)
[2018-08-31] MEDS ORDERED: SODIUM CHLORIDE IV SCH ×9 (18:00)
[2018-08-31] MEDS ORDERED: [UNRECOGNIZED DRUG - OTHER] IV SCH ×9 (18:00)
[2018-08-31] MEDS: FAT EMULSIONS 250 ML IV SCH (18:00)
[2018-08-31 20:00] VITALS: BP_SYST 97
[2018-08-31 22:30] VITALS: BP_SYST 99
[2018-09-01] MEDS: LORazepam 2 MG/ML VIAL IVP PRN ×2 (00:47→23:28)
[2018-09-01] MEDS: KETOROLAC TROMETHAMINE 30 MG VIAL IVP SCH ×4 (05:29→23:15)
[2018-09-01] MEDS: PIPERACILLIN/TAZO 4.5GM/DEX-IS 100 ML IV SCH ×3 (05:29→20:52)
[2018-09-01 06:22] LABS: CALCIUM 8.1 mg/dL (8.4-11.0); CREATININE 0.78 mg/dL (0.55-1.30); POTASSIUM 4.1 mmol/L (3.5-5.1)
[2018-09-01 06:33] LABS: ALBUMIN 1.7 g/dL (3.4-4.8); PHOSPHORUS 3.5 mg/dL (2.7-4.5); TOTAL BILIRUBIN 0.6 mg/dL (0.0-1.0)
[2018-09-01 08:21] VITALS: BP_SYST 96
[2018-09-01] MEDS: TAMSULOSIN HCL 0.4 MG CAP PO SCH ×2 (09:00→09:53)
[2018-09-01] MEDS: MINERAL OIL 30 ML UDC PO SCH ×2 (09:00→09:53)
[2018-09-01] MEDS: CHOLECALCIFEROL (VITAMIN D3) 2,000 UNIT TABLET PO SCH ×2 (09:00→09:53)
[2018-09-01] MEDS: PANTOPRAZOLE SODIUM 40 MG/VIAL (PROTONIX) IVP SCH (09:53)
[2018-09-01] MEDS: MULTIVITS,CA,MINERALS/IRON/FA 1 TABLET PO SCH ×2 (09:57→20:51)
[2018-09-01 12:35] VITALS: BP_SYST 116
[2018-09-01] MEDS ORDERED: MORPHINE 2 MG/ML INJ. SYRINGE IVP PRN (12:45)
[2018-09-01 16:20] VITALS: BP_SYST 125
[2018-09-01 16:30] VITALS: BP_SYST 125
[2018-09-01 20:00] VITALS: BP_SYST 135
[2018-09-01] MEDS: MORPHINE 4 MG/ML INJ. SYRINGE IVP PRN (20:52)
[2018-09-02] MEDS: PIPERACILLIN/TAZO 4.5GM/DEX-IS 100 ML IV SCH ×3 (05:58→22:05)
[2018-09-02] MEDS: KETOROLAC TROMETHAMINE 30 MG VIAL IVP SCH (05:58)
[2018-09-02 08:00] VITALS: BP_SYST 100
[2018-09-02] MEDS: MINERAL OIL 30 ML UDC PO SCH ×2 (09:00→09:50)
[2018-09-02] MEDS: PANTOPRAZOLE SODIUM 40 MG/VIAL (PROTONIX) IVP SCH (09:49)
[2018-09-02] MEDS: TAMSULOSIN HCL 0.4 MG CAP PO SCH (09:49)
[2018-09-02] MEDS: MULTIVITS,CA,MINERALS/IRON/FA 1 TABLET PO SCH ×2 (09:49→22:05)
[2018-09-02] MEDS: CHOLECALCIFEROL (VITAMIN D3) 2,000 UNIT TABLET PO SCH (09:50)
[2018-09-02 11:09] VITALS: BP_SYST 116
[2018-09-02 11:15] VITALS: BP_SYST 116
[2018-09-02] MEDS: HYDROcodone/ACETAMIN 7.5-325 MG TAB PO PRN (12:52)
[2018-09-02 16:00] VITALS: BP_SYST 118
[2018-09-02] MEDS: MORPHINE 4 MG/ML INJ. SYRINGE IVP PRN ×2 (18:13→23:27)
[2018-09-02 20:00] VITALS: BP_SYST 105
[2018-09-02] MEDS: ONDANSETRON HCL 4 MG/2 ML VIAL IVP PRN (23:37)
[2018-09-03] VITALS: BP_SYST 100
[2018-09-03] MEDS: LORazepam 2 MG/ML VIAL IVP PRN (01:44)
[2018-09-03] MEDS: PIPERACILLIN/TAZO 4.5GM/DEX-IS 100 ML IV SCH ×3 (06:16→22:18)
[2018-09-03] MEDS: MINERAL OIL 30 ML UDC PO SCH (09:00)
[2018-09-03] MEDS: TAMSULOSIN HCL 0.4 MG CAP PO SCH (09:33)
[2018-09-03] MEDS: PANTOPRAZOLE SODIUM 40 MG/VIAL (PROTONIX) IVP SCH (09:33)
[2018-09-03] MEDS: MULTIVITS,CA,MINERALS/IRON/FA 1 TABLET PO SCH ×2 (09:33→22:18)
[2018-09-03] MEDS: CHOLECALCIFEROL (VITAMIN D3) 2,000 UNIT TABLET PO SCH (09:33)
[2018-09-03] MEDS ORDERED: MORPHINE 4 MG/ML INJ. SYRINGE IVP PRN (09:45)
[2018-09-03] MEDS: HYDROcodone/ACETAMIN 7.5-325 MG TAB PO PRN ×2 (09:50→22:27)
[2018-09-03 12:57] VITALS: BP_SYST 105
[2018-09-03 16:25] VITALS: BP_SYST 109
[2018-09-03 20:00] VITALS: BP_SYST 108
[2018-09-04 01:00] VITALS: BP_SYST 113
[2018-09-04] MEDS: LORazepam 2 MG/ML VIAL IVP PRN (02:26)
[2018-09-04] MEDS: PIPERACILLIN/TAZO 4.5GM/DEX-IS 100 ML IV SCH (05:59)
[2018-09-04 08:00] VITALS: BP_SYST 109
[2018-09-04] MEDS: CHOLECALCIFEROL (VITAMIN D3) 2,000 UNIT TABLET PO SCH (08:42)
[2018-09-04] MEDS: MINERAL OIL 30 ML UDC PO SCH ×2 (08:42→08:54)
[2018-09-04] MEDS: MULTIVITS,CA,MINERALS/IRON/FA 1 TABLET PO SCH ×2 (08:42→21:15)
[2018-09-04] MEDS: TAMSULOSIN HCL 0.4 MG CAP PO SCH (08:42)
[2018-09-04] MEDS: PANTOPRAZOLE SODIUM 40 MG/VIAL (PROTONIX) IVP SCH (08:42)
[2018-09-04 12:15] VITALS: BP_SYST 103
[2018-09-04 16:46] VITALS: BP_SYST 109
[2018-09-04 20:00] VITALS: BP_SYST 101
[2018-09-04 23:33] VITALS: BP_SYST 112
[2018-09-05] MEDS: LORazepam 2 MG/ML VIAL IVP PRN (01:11)
[2018-09-05 08:43] VITALS: BP_SYST 112
[2018-09-05 08:45] VITALS: BP_SYST 96
[2018-09-05] MEDS: MINERAL OIL 30 ML UDC PO SCH (09:00)
[2018-09-05] MEDS: PANTOPRAZOLE SODIUM 40 MG/VIAL (PROTONIX) IVP SCH (09:43)
[2018-09-05] MEDS: CHOLECALCIFEROL (VITAMIN D3) 2,000 UNIT TABLET PO SCH (09:43)
[2018-09-05] MEDS: MULTIVITS,CA,MINERALS/IRON/FA 1 TABLET PO SCH ×2 (09:43→21:24)
[2018-09-05] MEDS: TAMSULOSIN HCL 0.4 MG CAP PO SCH (09:43)
[2018-09-05 12:50] VITALS: BP_SYST 101
[2018-09-05] MEDS: PIPERACILLIN/TAZO 4.5GM/DEX-IS 100 ML IV SCH ×2 (14:10→21:24)
[2018-09-05 16:50] VITALS: BP_SYST 103
[2018-09-05 20:00] VITALS: BP_SYST 101
[2018-09-06 00:15] VITALS: BP_SYST 114
[2018-09-06] MEDS: PIPERACILLIN/TAZO 4.5GM/DEX-IS 100 ML IV SCH ×2 (05:28→14:58)
[2018-09-06 08:30] VITALS: BP_SYST 104
[2018-09-06] MEDS: TAMSULOSIN HCL 0.4 MG CAP PO SCH (09:00)
[2018-09-06] MEDS: MINERAL OIL 30 ML UDC PO SCH (09:00)
[2018-09-06] MEDS: PANTOPRAZOLE SODIUM 40 MG/VIAL (PROTONIX) IVP SCH (09:59)
[2018-09-06] MEDS: CHOLECALCIFEROL (VITAMIN D3) 2,000 UNIT TABLET PO SCH (10:01)
[2018-09-06] MEDS: MULTIVITS,CA,MINERALS/IRON/FA 1 TABLET PO SCH ×2 (10:01→20:53)
[2018-09-06 12:25] VITALS: BP_SYST 118
[2018-09-06 16:50] VITALS: BP_SYST 125
[2018-09-06 20:00] VITALS: BP_SYST 101
[2018-09-06] MEDS ORDERED: TEMAZEPAM 15 MG CAPSULE PO SCH (21:00)
[2018-09-07] MEDS: PIPERACILLIN/TAZO 4.5GM/DEX-IS 100 ML IV SCH ×3 (00:11→15:12)
[2018-09-07 01:45] VITALS: BP_SYST 121
[2018-09-07 07:06] LABS: BASOPHILS # (AUTO) 0.1 K/uL (0.0-0.2); BASOPHILS % (AUTO) 0.7 % (0.0-2.0); EOSINOPHILS # (AUTO) 0.4 K/uL (0.0-0.4); HEMATOCRIT 36.8 % (36-54); HEMOGLOBIN 11.6 g/dL (14.0-18.0); LYMPHOCYTES # (AUTO) 2.9 K/uL (1.0-5.5); LYMPHOCYTES % (AUTO) 31.9 % (20.5-51.5); MEAN CORPUSCULAR HEMOGLOBIN 31 pg (27-31); MEAN CORPUSCULAR HGB CONC 31 % (32-36); MEAN CORPUSCULAR VOLUME 97 fL (79.0-98.0); MONOCYTES # (AUTO) 0.6 K/uL (0.0-1.0); MONOCYTES % (AUTO) 7.1 % (1.7-9.3); NEUTROPHILS # (AUTO) 5.1 K/uL (1.8-7.7); NEUTROPHILS % (AUTO) 56.3 % (40.0-70.0); PLATELET COUNT (AUTO) 630 K/uL (130-430); RED BLOOD CELL COUNT(AUTO) 3.79 MIL/uL (4.2-6.2); RED CELL DISTRIBUTION WIDTH 12.7 % (9.0-15.0); WHITE BLOOD COUNT (AUTO) 9.1 K/uL (4.8-10.8)
[2018-09-07 07:08] LABS: ALBUMIN 2.5 g/dL (3.4-4.8); CREATININE 1.05 mg/dL (0.55-1.30); POTASSIUM 3.8 mmol/L (3.5-5.1); TOTAL BILIRUBIN 0.5 mg/dL (0.0-1.0)
[2018-09-07 08:55] VITALS: BP_SYST 113
[2018-09-07] MEDS: MINERAL OIL 30 ML UDC PO SCH (09:00)
[2018-09-07] MEDS: TAMSULOSIN HCL 0.4 MG CAP PO SCH (09:00)
[2018-09-07] MEDS: CHOLECALCIFEROL (VITAMIN D3) 2,000 UNIT TABLET PO SCH (10:10)
[2018-09-07] MEDS: PANTOPRAZOLE SODIUM 40 MG/VIAL (PROTONIX) IVP SCH (10:10)
[2018-09-07] MEDS: MULTIVITS,CA,MINERALS/IRON/FA 1 TABLET PO SCH (10:11)
[2018-09-07 12:00] VITALS: BP_SYST 125
[2018-09-07 16:00] VITALS: BP_SYST 131
[2018-09-07 19:13] VITALS: BP_SYST 113
== END 2018-09-07 20:30 | disposition home health service (06) | DRG 418 ==
LOC: SED 14:08 → SMU 19:38 → STU 21:07 → SMU 21:12 → SIC 08-27 22:59 → STU 08-29 15:05 → SMU 09-01 15:02
PROVIDERS: ADMIT Internal Medicine; ATTEND Internal Medicine
PROC: 0DTJ4ZZ Resection of Appendix, Percutaneous Endoscopic Approach (ICD-10-PCS; principal; 2018-08-16 09:30)
PROC: 3E0336Z Introduction of Nutritional Substance into Peripheral Vein, Percutaneous Approach (ICD-10-PCS; 2018-08-19)
PROC: 0D1N4Z4 Bypass Sigmoid Colon to Cutaneous, Percutaneous Endoscopic Approach (ICD-10-PCS; 2018-08-27)
PROC: 0FT44ZZ Resection of Gallbladder, Percutaneous Endoscopic Approach (ICD-10-PCS; 2018-08-27 15:00)
PROC: 02HV33Z Insertion of Infusion Device into Superior Vena Cava, Percutaneous Approach (ICD-10-PCS; 2018-08-28)
DX: K80.12 Calculus of gallbladder with acute and chronic cholecystitis without obstruction (principal); K35.30 Acute appendicitis with localized peritonitis, without perforation or gangrene; K51.90 Ulcerative colitis, unspecified, without complications; K56.7 Ileus, unspecified; N39.0 Urinary tract infection, site not specified; K57.32 Diverticulitis of large intestine without perforation or abscess without bleeding; D62 Acute posthemorrhagic anemia; E66.01 Morbid (severe) obesity due to excess calories; M13.0 Polyarthritis, unspecified; N20.0 Calculus of kidney; K59.00 Constipation, unspecified; I10 Essential (primary) hypertension; B96.20 Unspecified Escherichia coli [E. coli] as the cause of diseases classified elsewhere; B96.1 Klebsiella pneumoniae [K. pneumoniae] as the cause of diseases classified elsewhere; Z68.39 Body mass index [BMI] 39.0-39.9, adult; Z80.1 Family history of malignant neoplasm of trachea, bronchus and lung; Z87.442 Personal history of urinary calculi; Z90.49 Acquired absence of other specified parts of digestive tract; Z98.84 Bariatric surgery status; Z79.899 Other long term (current) drug therapy
CPT/HCPCS: 36415; 71045; 76700-TC; 78226; 80048; 80053; 81000-TC; 82150-TC; 82962; 83605; 83690-TC; 83735-TC; 84100-TC; 84478-TC; 85007; 85025; 85027; 85610-TC; 85651-TC; 85730-TC; 86140; 86694; 86886; 86900; 86901; 87040-TC; 87045-TC; 87046; 87070-TC; 87075-TC; 87081; 87177; 87186-TC; 87230-TC; 87497; 88304; 88307; 93005; 94010; 96374; 96375; 99285; A5061; A9537; C1727; C9113; J0690; J0696; J1170; J1200; J1450; J1815; J1885; J2060; J2250; J2270; J2405; J2543; J2704; J2710; J2765; J3010; J3475; J3480; J3490; J7030; J7042; J7060; J7120; J7131; Q9964; Q9967